=== PATIENT | male | born 1965 | race African-American/Black ===

== ENCOUNTER 2020-05-31 08:45 | Emergency (ER) | payer OTHER ==
[~2020-05-31] VITALS: Ht 175.3 cm; Wt 89.0 kg
--- NOTE | 2020-05-31 08:45 | NUR ---
Actual time of arrival 0837, walked from ambulance entrance to room in bil leg and wrist cuffs attached to waist chain with correctional officers (CO's) x2. 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 Awaiting registration in order to document triage and place orders.
--- NOTE | 2020-05-31 09:03 | NUR ---
Pt and CO's notified of need for urine sample when able and that US was ordered. Urinal placed at bedside for use when able to urinate.
--- NOTE | 2020-05-31 10:03 | NUR ---
Pt asked to attempt urine sample with 225mL dark yellow, hazy uop and UA specimen sent to lab.
[2020-05-31 10:16] LABS: MICROSCOPIC AUTO
[2020-05-31] MEDS ORDERED: CEFTRIAXONE 250 MG IM ONE (10:30)
[2020-05-31] MEDS ORDERED: AZITHROMYCIN 500 MG TABLET PO ONE (10:30)
[2020-05-31] MEDS ORDERED: PLEASE ENTER ALLERGIES MC SCH (10:30)
[2020-05-31] MEDS ORDERED: CEFTRIAXONE 1,000 MG ONE (10:32)
[2020-05-31] MEDS ORDERED: AZITHROMYCIN 500 MG TABLET ONE (10:32)
[2020-05-31 10:53] VITALS: BP 141/77
== END 2020-05-31 10:55 | disposition home or self-care (01) ==
LOC: ED 09:01
DX: N45.3 Epididymo-orchitis (principal); N43.3 Hydrocele, unspecified
CPT/HCPCS: 76870; 81001; 87086; 96372; 99284; J0696